=== PATIENT | male | born 1965 | race African-American/Black ===

== ENCOUNTER 2021-05-05 05:25 | Day surgery (SDC) | payer OTHER ==
[2021-04-15 13:48] VITALS: BMI 28.2
[2021-05-05] MEDS ORDERED: MIDAZOLAM HCL 2 MG/2 ML SINGLE DOSE VIAL ONE (11:23)
[2021-05-05] MEDS ORDERED: MIDAZOLAM HCL 5 MG/5 ML - 5 ML VIAL IVPUSH ONE ×2 (11:45→12:17)
[2021-05-05 14:07] VITALS: TEMP 97.6
[2021-05-05 14:49] VITALS: BP 140/70; PULSE 78
== END 2021-05-05 14:35 | disposition home or self-care (01) ==
LOC: JRADIR 05:25
PROVIDERS: ATTEND Internal Medicine Hematology & Oncology
PROC: 0JH63WZ Insertion of Totally Implantable Vascular Access Device into Chest Subcutaneous Tissue and Fascia, Percutaneous Approach (ICD-10-PCS; principal; 2021-05-05)
DX: C09.9 Malignant neoplasm of tonsil, unspecified (principal)
CPT/HCPCS: 36561; C1788; 77001-TC-FY; 82962

== ENCOUNTER 2021-05-06 07:09 | Day surgery (SDC) | payer OTHER ==
[2021-05-06] MEDS ORDERED: SODIUM CHLORIDE 1,000 ML IV ONE (09:30)
[2021-05-06] MEDS ORDERED: PALONOSETRON HCL 0.25 MG/5 ML VIAL IVPUSH ONE (10:30)
[2021-05-06] MEDS ORDERED: FOSAPREPITANT DIMEGLUMINE 150 MG in SODIUM CHLORIDE 145 ML IVPB ONE (10:30)
[2021-05-06] MEDS ORDERED: DEXAMETHASONE SODIUM PHOSPHATE 10 MG in SODIUM CHLORIDE 50 ML IVPB ONE (10:30)
[2021-05-06] MEDS ORDERED: SODIUM CHLORIDE IV ONE (11:00)
[2021-05-06] MEDS ORDERED: CISPLATIN IV ONE (11:00)
[2021-05-06 11:20] LABS: BASO % 0.6 % (0-2.0); EOS % 2.4 % (0-4.5); HEMATOCRIT 44.7 % (35.4-49); LYMPH % 18.4 % (8-40); MCH 29.8 pg (25.7-33.7); MCHC 33.7 g/dl (32.0-35.9); MEAN CELL VOLUME 88.4 fl (80-96); MONO % 9.6 % (3.8-10.2); PLATELET COUNT 223 10^3/uL (134-434); RBC 5.05 M/mm3 (4.00-5.60); RDW 13.6 % (11.9-15.9); WHITE BLOOD COUNT 4.3 K/mm3 (4.0-10.0)
[2021-05-06 11:46] LABS: ALBUMIN 3.2 g/dl (3.4-5.0); BLOOD UREA NITROGEN 10.8 mg/dL (7-18); CALCIUM 9.1 mg/dL (8.5-10.1)
[2021-05-06 11:49] LABS: CREATININE 1.1 mg/dL (0.55-1.3)
[2021-05-06 11:51] LABS: BILIRUBIN,TOTAL 0.5 mg/dL (0.2-1); TOT PROT 7.3 g/dl (6.4-8.2)
[2021-05-06] MEDS ORDERED: POTASSIUM CHLORIDE 10 MEQ, MAGNESIUM SULFATE 1 GM in SODIUM CHLORIDE 1,000 ML IV ONE (12:00)
[2021-05-06 18:08] VITALS: TEMP 98.4
[2021-05-06 18:15] VITALS: BP 139/72; PULSE 81
== END 2021-05-06 16:50 | disposition home or self-care (01) ==
LOC: JONCCHEMO 07:09
PROVIDERS: ATTEND Internal Medicine Hematology & Oncology
DX: Z51.11 Encounter for antineoplastic chemotherapy (principal); C09.9 Malignant neoplasm of tonsil, unspecified
CPT/HCPCS: 36415; 80053; 83735; 85025; 96361; 96367; 96375; 96413; J1453; J2469

== ENCOUNTER 2021-05-07 08:49 | Day surgery (SDC) | payer OTHER ==
[2021-05-07] MEDS ORDERED: SODIUM CHLORIDE 500 ML IV STA (11:02)
[2021-05-07 15:52] VITALS: BP 134/71; PULSE 89; TEMP 97.7
[2021-05-07] MEDS ORDERED: PORTA CATH FLUSH 10 ML IVPUSH ONE (15:52)
== END 2021-05-07 13:30 | disposition home or self-care (01) ==
LOC: JONCNONCHE 08:49
PROVIDERS: ATTEND Internal Medicine Hematology & Oncology
PROC: 3E0437Z Introduction of Electrolytic and Water Balance Substance into Central Vein, Percutaneous Approach (ICD-10-PCS; principal; 2021-05-07)
DX: C09.9 Malignant neoplasm of tonsil, unspecified (principal); Z76.89 Persons encountering health services in other specified circumstances
CPT/HCPCS: 96360; 96361

== ENCOUNTER 2021-05-13 06:59 | Day surgery (SDC) | payer OTHER ==
[2021-05-13] MEDS ORDERED: SODIUM CHLORIDE 1,000 ML IV ONE ×2 (09:00→11:30)
[2021-05-13] MEDS ORDERED: PALONOSETRON HCL 0.25 MG/5 ML VIAL IVPUSH ONE (10:00)
[2021-05-13] MEDS ORDERED: FOSAPREPITANT DIMEGLUMINE 150 MG in SODIUM CHLORIDE 145 ML IVPB ONE (10:00)
[2021-05-13] MEDS ORDERED: DEXAMETHASONE SODIUM PHOSPHATE 10 MG in SODIUM CHLORIDE 50 ML IVPB ONE (10:00)
[2021-05-13] MEDS ORDERED: CISPLATIN IV ONE (10:30)
[2021-05-13] MEDS ORDERED: SODIUM CHLORIDE IV ONE (10:30)
[2021-05-13 10:50] LABS: HEMATOCRIT 42.6 % (35.4-49); HEMOGLOBIN 14.3 GM/dL (11.7-16.9); MCH 29.2 pg (25.7-33.7); MCHC 33.7 g/dl (32.0-35.9); MEAN CELL VOLUME 86.6 fl (80-96); MEAN PLT VOLUME 7.6 fl (7.5-11.1); PLATELET COUNT 223 10^3/uL (134-434); RBC 4.92 M/mm3 (4.00-5.60); RDW 13.2 % (11.9-15.9); WHITE BLOOD COUNT 3.6 K/mm3 (4.0-10.0)
[2021-05-13 11:19] LABS: ALBUMIN 3.3 g/dl (3.4-5.0); BLOOD UREA NITROGEN 11.5 mg/dL (7-18); MAGNESIUM 2.2 mg/dL (1.8-2.4)
[2021-05-13 11:22] LABS: CREATININE 1.1 mg/dL (0.55-1.3)
[2021-05-13 11:24] LABS: ANISOCYTOSIS 1+; BILIRUBIN,TOTAL 0.4 mg/dL (0.2-1); MACROCYTOSIS 0; PLATELET ESTIMATE NORMAL; TOT PROT 7.1 g/dl (6.4-8.2)
[2021-05-13] MEDS ORDERED: KCL 10 MEQ IVPB 10 MEQ/100 ML INFUS.BAG IVPB ONE (11:30)
[2021-05-13] MEDS ORDERED: MAGNESIUM 1GM/D5W - 1 GM/100 ML IVPB IVPB ONE (11:30)
[2021-05-13 17:14] VITALS: PULSE 78; TEMP 98.5
[2021-05-13] MEDS ORDERED: PORTA CATH FLUSH 10 ML IVPUSH ONE ×2 (17:14→18:09)
[2021-05-13 18:09] VITALS: BP 148/70
== END 2021-05-13 17:55 | disposition home or self-care (01) ==
LOC: JONCCHEMO 06:59
PROVIDERS: ATTEND Internal Medicine Hematology & Oncology
PROC: 3E04305 Introduction of Other Antineoplastic into Central Vein, Percutaneous Approach (ICD-10-PCS; principal; 2021-05-13)
PROC: 3E043GC Introduction of Other Therapeutic Substance into Central Vein, Percutaneous Approach (ICD-10-PCS; 2021-05-13)
PROC: 3E0437Z Introduction of Electrolytic and Water Balance Substance into Central Vein, Percutaneous Approach (ICD-10-PCS; 2021-05-13)
DX: Z51.11 Encounter for antineoplastic chemotherapy (principal); C09.9 Malignant neoplasm of tonsil, unspecified; I10 Essential (primary) hypertension; E11.9 Type 2 diabetes mellitus without complications; Z86.73 Personal history of transient ischemic attack (TIA), and cerebral infarction without residual deficits
CPT/HCPCS: 36415; 80053; 83735; 85025; 96361; 96367; 96375; 96413; J1453; J2469

== ENCOUNTER 2021-05-14 08:32 | Day surgery (SDC) | payer OTHER ==
[2021-05-14] MEDS ORDERED: SODIUM CHLORIDE 500 ML IV ONE (11:00)
[2021-05-14 16:02] VITALS: TEMP 98.4
[2021-05-14] MEDS ORDERED: PORTA CATH FLUSH 10 ML IVPUSH ONE (16:02)
[2021-05-14 16:03] VITALS: BP 140/79; PULSE 78
== END 2021-05-14 13:30 | disposition home or self-care (01) ==
LOC: JONCNONCHE 08:32
PROVIDERS: ATTEND Internal Medicine Hematology & Oncology
PROC: 3E0437Z Introduction of Electrolytic and Water Balance Substance into Central Vein, Percutaneous Approach (ICD-10-PCS; principal; 2021-05-14)
DX: Z76.89 Persons encountering health services in other specified circumstances (principal); C09.9 Malignant neoplasm of tonsil, unspecified; I10 Essential (primary) hypertension; E11.9 Type 2 diabetes mellitus without complications; Z86.73 Personal history of transient ischemic attack (TIA), and cerebral infarction without residual deficits
CPT/HCPCS: 96360; 96361

== ENCOUNTER 2021-05-20 07:22 | Day surgery (SDC) | payer OTHER ==
[2021-05-20] MEDS ORDERED: SODIUM CHLORIDE 1,000 ML IV ONE ×2 (10:00→12:30)
[2021-05-20] MEDS ORDERED: PALONOSETRON HCL 0.25 MG/5 ML VIAL IVPUSH ONE (11:00)
[2021-05-20] MEDS ORDERED: DEXAMETHASONE SODIUM PHOSPHATE 10 MG in SODIUM CHLORIDE 50 ML IVPB ONE (11:00)
[2021-05-20] MEDS ORDERED: FOSAPREPITANT DIMEGLUMINE 150 MG in SODIUM CHLORIDE 145 ML IVPB ONE (11:00)
[2021-05-20] MEDS ORDERED: SODIUM CHLORIDE IV ONE (11:30)
[2021-05-20] MEDS ORDERED: CISPLATIN IV ONE (11:30)
[2021-05-20 11:43] LABS: BASO % 0.5 % (0-2.0); EOS % 3.1 % (0-4.5); HEMATOCRIT 40.9 % (35.4-49); HEMOGLOBIN 13.9 GM/dL (11.7-16.9); LYMPH % 8.3 % (8-40); MCH 29.8 pg (25.7-33.7); MEAN CELL VOLUME 87.6 fl (80-96); MEAN PLT VOLUME 7.3 fl (7.5-11.1); MONO % 18.9 % (3.8-10.2); NEUT % 69.2 % (42.8-82.8); PLATELET COUNT 187 10^3/uL (134-434); RBC 4.67 M/mm3 (4.00-5.60); RDW 13.6 % (11.9-15.9); WHITE BLOOD COUNT 3.2 K/mm3 (4.0-10.0)
[2021-05-20 12:02] LABS: ALBUMIN 3.2 g/dl (3.4-5.0); BLOOD UREA NITROGEN 10.2 mg/dL (7-18); CALCIUM 8.5 mg/dL (8.5-10.1)
[2021-05-20 12:07] LABS: BILIRUBIN,TOTAL 0.5 mg/dL (0.2-1); TOT PROT 6.9 g/dl (6.4-8.2)
[2021-05-20] MEDS ORDERED: KCL 10 MEQ IVPB 10 MEQ/100 ML INFUS.BAG IVPB ONE (12:30)
[2021-05-20] MEDS ORDERED: MAGNESIUM 1GM/D5W - 1 GM/100 ML IVPB IVPB ONE (12:30)
[2021-05-20 13:11] LABS: MAGNESIUM 2.1 mg/dL (1.8-2.4)
[2021-05-20 18:34] VITALS: BP 122/69; PULSE 73; TEMP 98.5
[2021-05-20] MEDS ORDERED: PORTA CATH FLUSH 10 ML IVPUSH ONE (18:34)
== END 2021-05-20 18:37 | disposition home or self-care (01) ==
LOC: JONCCHEMO 07:22
PROVIDERS: ATTEND Internal Medicine Hematology & Oncology
PROC: 3E04305 Introduction of Other Antineoplastic into Central Vein, Percutaneous Approach (ICD-10-PCS; principal; 2021-05-20)
PROC: 3E043GC Introduction of Other Therapeutic Substance into Central Vein, Percutaneous Approach (ICD-10-PCS; 2021-05-20)
PROC: 3E0437Z Introduction of Electrolytic and Water Balance Substance into Central Vein, Percutaneous Approach (ICD-10-PCS; 2021-05-20)
DX: Z51.11 Encounter for antineoplastic chemotherapy (principal); C09.9 Malignant neoplasm of tonsil, unspecified; I10 Essential (primary) hypertension; E11.9 Type 2 diabetes mellitus without complications; Z86.73 Personal history of transient ischemic attack (TIA), and cerebral infarction without residual deficits
CPT/HCPCS: 36415; 80053; 83735; 85025; 96361; 96367; 96413; J1453; J2469

== ENCOUNTER 2021-05-22 17:02 | Day surgery (SDC) | payer OTHER ==
[2021-05-22 10:57] LABS: CALCIUM 8.2 mg/dL (8.5-10.1)
[2021-05-22 10:58] LABS: BLOOD UREA NITROGEN 10.4 mg/dL (7-18); MAGNESIUM 1.9 mg/dL (1.8-2.4)
[~2021-05-22 17:02] MED LIST: MAGNESIUM 2GM/50ML STERILE WATER IVPB IVPB ONE; SODIUM CHLORIDE 500 ML IV STA
[2021-05-22 17:31] VITALS: BP 131/71; PULSE 66; TEMP 98.1
[2021-05-22] MEDS ORDERED: PORTA CATH FLUSH 10 ML IVPUSH ONE (17:31)
== END 2021-05-22 17:45 | disposition home or self-care (01) ==
LOC: J7W 17:02 → JONCNONCHE 17:02
PROVIDERS: ATTEND Internal Medicine Hematology & Oncology
PROC: 3E043GC Introduction of Other Therapeutic Substance into Central Vein, Percutaneous Approach (ICD-10-PCS; principal; 2021-05-22)
PROC: 3E0437Z Introduction of Electrolytic and Water Balance Substance into Central Vein, Percutaneous Approach (ICD-10-PCS; 2021-05-22)
DX: Z76.89 Persons encountering health services in other specified circumstances (principal); C09.9 Malignant neoplasm of tonsil, unspecified; I10 Essential (primary) hypertension; E11.9 Type 2 diabetes mellitus without complications; Z86.73 Personal history of transient ischemic attack (TIA), and cerebral infarction without residual deficits
CPT/HCPCS: 36415; 80048; 83735; 96361; 96365

== ENCOUNTER 2021-05-27 07:12 | Day surgery (SDC) | payer OTHER ==
[2021-05-27] MEDS ORDERED: DEXAMETHASONE SODIUM PHOSPHATE 10 MG in SODIUM CHLORIDE 50 ML IVPB ONE (11:00)
[2021-05-27] MEDS ORDERED: PALONOSETRON HCL 0.25 MG/5 ML VIAL IVPUSH ONE (11:00)
[2021-05-27] MEDS ORDERED: SODIUM CHLORIDE 1,000 ML IV ONE ×2 (11:00→12:00)
[2021-05-27] MEDS ORDERED: FOSAPREPITANT DIMEGLUMINE 150 MG in SODIUM CHLORIDE 145 ML IVPB ONE (11:00)
[2021-05-27] MEDS ORDERED: CISPLATIN IV ONE ×2 (11:30→12:45)
[2021-05-27] MEDS ORDERED: SODIUM CHLORIDE IV ONE ×2 (11:30→12:45)
[2021-05-27 11:43] LABS: BASO % 0.7 % (0-2.0); EOS % 2.2 % (0-4.5); HEMATOCRIT 43.1 % (35.4-49); LYMPH % 8.5 % (8-40); MCH 28.9 pg (25.7-33.7); MCHC 32.6 g/dl (32.0-35.9); MEAN CELL VOLUME 88.6 fl (80-96); MEAN PLT VOLUME 7.3 fl (7.5-11.1); MONO % 13.7 % (3.8-10.2); NEUT % 74.9 % (42.8-82.8); PLATELET COUNT 205 10^3/uL (134-434); RBC 4.86 M/mm3 (4.00-5.60); RDW 13.6 % (11.9-15.9); WHITE BLOOD COUNT 2.9 K/mm3 (4.0-10.0)
[2021-05-27 11:58] LABS: CALCIUM 8.9 mg/dL (8.5-10.1)
[2021-05-27 11:59] LABS: ALBUMIN 3.2 g/dl (3.4-5.0)
[2021-05-27 12:00] LABS: BLOOD UREA NITROGEN 10.2 mg/dL (7-18)
[2021-05-27] MEDS ORDERED: KCL 10 MEQ IVPB 10 MEQ/100 ML INFUS.BAG IVPB ONE (12:00)
[2021-05-27] MEDS ORDERED: MAGNESIUM 1GM/D5W - 1 GM/100 ML IVPB IVPB ONE (12:00)
[2021-05-27 12:03] LABS: TOT PROT 6.9 g/dl (6.4-8.2)
[2021-05-27 12:04] LABS: BILIRUBIN,TOTAL 0.6 mg/dL (0.2-1)
[2021-05-27 17:06] VITALS: TEMP 98
[2021-05-27] MEDS ORDERED: PORTA CATH FLUSH 10 ML IVPUSH ONE (17:06)
[2021-05-27 18:07] VITALS: BP 165/81; PULSE 87
== END 2021-05-27 18:21 | disposition home or self-care (01) ==
LOC: JONCCHEMO 07:12
PROVIDERS: ATTEND Internal Medicine Hematology & Oncology
DX: Z51.11 Encounter for antineoplastic chemotherapy (principal); C09.9 Malignant neoplasm of tonsil, unspecified; E11.9 Type 2 diabetes mellitus without complications
CPT/HCPCS: 36415; 80053; 83735; 85025; 87517; 96366; 96367; 96375; 96413; J1453; J2469

== ENCOUNTER 2021-05-29 10:41 | Day surgery (SDC) | payer OTHER ==
[~2021-05-29 10:41] MED LIST changes: -MAGNESIUM 2GM/50ML STERILE WATER IVPB IVPB ONE
[2021-05-29 11:51] LABS: BLOOD UREA NITROGEN 13.8 mg/dL (7-18); CALCIUM 8.5 mg/dL (8.5-10.1); MAGNESIUM 1.8 mg/dL (1.8-2.4)
[2021-05-29 11:54] LABS: CREATININE 1.1 mg/dL (0.55-1.3)
[2021-05-29] MEDS ORDERED: MAGNESIUM SULF 50% (8.12 MEQ/2 ML-1 GM VIAL) ONE ×2 (12:37→12:39)
[2021-05-29] MEDS ORDERED: SODIUM CHLORIDE 250 ML IV STA (12:39)
[2021-05-29] MEDS: MAGNESIUM 2GM/50ML STERILE WATER IVPB IVPB ONE ×2 (12:45→16:20)
[2021-05-29 16:19] VITALS: BP 131/74; PULSE 76; TEMP 97.9
[2021-05-29] MEDS ORDERED: PORTA CATH FLUSH 10 ML IVPUSH ONE (16:19)
== END 2021-05-29 14:00 | disposition home or self-care (01) ==
LOC: JONCNONCHE 10:41
PROVIDERS: ATTEND Internal Medicine Hematology & Oncology
PROC: 3E043GC Introduction of Other Therapeutic Substance into Central Vein, Percutaneous Approach (ICD-10-PCS; principal; 2021-05-29)
DX: C09.9 Malignant neoplasm of tonsil, unspecified (principal); Z76.89 Persons encountering health services in other specified circumstances
CPT/HCPCS: 36415; 80048; 83735; 96365; 96366

== ENCOUNTER → 2021-06-03 | Day surgery (SDC) | payer OTHER ==
[~2021-06-03] MED LIST changes: +CISPLATIN IV ONE; +DEXAMETHASONE SODIUM PHOSPHATE 10 MG in SODIUM CHLORIDE 50 ML IVPB ONE; +FOSAPREPITANT DIMEGLUMINE 150 MG in SODIUM CHLORIDE 145 ML IVPB ONE; +KCL 10 MEQ IVPB 10 MEQ/100 ML INFUS.BAG IVPB ONE; +MAGNESIUM 1GM/D5W - 1 GM/100 ML IVPB IVPB ONE; +PALONOSETRON HCL 0.25 MG/5 ML VIAL IVPUSH ONE; +PORTA CATH FLUSH 10 ML IVPUSH ONE; +SODIUM CHLORIDE 1,000 ML IV ONE; -SODIUM CHLORIDE 500 ML IV STA; +SODIUM CHLORIDE IV ONE
[2021-06-03 11:20] LABS: HEMATOCRIT 40.9 % (35.4-49); HEMOGLOBIN 13.2 GM/dL (11.7-16.9); MCH 28.7 pg (25.7-33.7); MCHC 32.2 g/dl (32.0-35.9); MEAN CELL VOLUME 89.2 fl (80-96); MEAN PLT VOLUME 7.4 fl (7.5-11.1); PLATELET COUNT 151 10^3/uL (134-434); RBC 4.59 M/mm3 (4.00-5.60); RDW 13.9 % (11.9-15.9); WHITE BLOOD COUNT 2.2 K/mm3 (4.0-10.0)
[2021-06-03 11:27] LABS: ALBUMIN 3.4 g/dl (3.4-5.0); CALCIUM 8.9 mg/dL (8.5-10.1); MAGNESIUM 1.9 mg/dL (1.8-2.4)
[2021-06-03 11:28] LABS: BLOOD UREA NITROGEN 9.3 mg/dL (7-18)
[2021-06-03 11:32] LABS: BILIRUBIN,TOTAL 0.5 mg/dL (0.2-1); TOT PROT 6.8 g/dl (6.4-8.2)
[2021-06-03 11:55] LABS: PLATELET ESTIMATE ADEQUATE
[2021-06-03 16:22] VITALS: TEMP 98.5
[2021-06-03 17:10] VITALS: BP 146/82; PULSE 80
== END | disposition home or self-care (01) ==
LOC: JONCCHEMO 07:29
PROVIDERS: ATTEND Internal Medicine Hematology & Oncology
PROC: 3E04305 Introduction of Other Antineoplastic into Central Vein, Percutaneous Approach (ICD-10-PCS; principal; 2021-06-03)
PROC: 3E043GC Introduction of Other Therapeutic Substance into Central Vein, Percutaneous Approach (ICD-10-PCS; 2021-06-03)
PROC: 3E0437Z Introduction of Electrolytic and Water Balance Substance into Central Vein, Percutaneous Approach (ICD-10-PCS; 2021-06-03)
DX: Z51.11 Encounter for antineoplastic chemotherapy (principal); C09.9 Malignant neoplasm of tonsil, unspecified; I10 Essential (primary) hypertension; I25.10 Atherosclerotic heart disease of native coronary artery without angina pectoris; E11.9 Type 2 diabetes mellitus without complications
CPT/HCPCS: 36415; 80053; 82962; 83735; 85025; 96361; 96367; 96375; 96413; J1453; J2469

== ENCOUNTER 2021-06-05 08:09 | Day surgery (SDC) | payer OTHER ==
[2021-06-05] MEDS ORDERED: SODIUM CHLORIDE 500 ML IV ONE (10:30)
[2021-06-05] MEDS ORDERED: MAGNESIUM 1GM/D5W 100ML - 100 ML IVPB IVPB ONE (11:47)
[2021-06-05 16:38] VITALS: BP 129/84; PULSE 79; TEMP 98.2
== END 2021-06-05 13:30 | disposition home or self-care (01) ==
LOC: JONCNONCHE 08:09
PROVIDERS: ATTEND Internal Medicine Hematology & Oncology
PROC: 3E033GC Introduction of Other Therapeutic Substance into Peripheral Vein, Percutaneous Approach (ICD-10-PCS; principal; 2021-06-05)
PROC: 3E0337Z Introduction of Electrolytic and Water Balance Substance into Peripheral Vein, Percutaneous Approach (ICD-10-PCS; 2021-06-05)
DX: Z76.89 Persons encountering health services in other specified circumstances (principal); C09.9 Malignant neoplasm of tonsil, unspecified
CPT/HCPCS: 96361; 96374

== ENCOUNTER 2021-06-12 14:56 | Inpatient (IN) | payer OTHER ==
[2021-06-12] MEDS ORDERED: SODIUM CHLORIDE 2,694 ML IV ONE (15:12)
[2021-06-12] MEDS ORDERED: PIPERACILLIN/TAZOB 4.5 GM 4.5 GM in DEXTROSE 5%-WATER 100 ML IVPB ONE (15:31)
[2021-06-12] MEDS ORDERED: VANCOMYCIN 1 GM in D5W (PRE-DOCKED) 1,000 MG/250 ML IVPB ONE (15:31)
[2021-06-12] MEDS ORDERED: PIPERACILLIN/TAZOB 4.5 GM 4.5 GM/100 ML BAG IVPB ONE (15:59)
[2021-06-12] MEDS ORDERED: VANCOMYCIN 1 GRAM (PRE-DOCKED) 1,000 MG/250 ML BAG IVPB ONE (15:59)
[2021-06-12] MEDS ORDERED: ACETAMINOPHEN 325 MG TABLET (FP) PO ONE (16:22)
[2021-06-12] MEDS ORDERED: ACETAMINOPHEN 325 MG TABLET (FP) ONE (17:06)
[2021-06-12] MEDS ORDERED: SODIUM CHLORIDE 0.45% 1,000 ML IV SCH (18:00)
[2021-06-12 18:49] LABS: URINE APPEARANCE CLEAR; URINE BILIRUBIN NEGATIVE (NEGATIVE); URINE COLOR YELLOW; URINE GLUCOSE (UA) NEGATIVE (NEGATIVE); URINE KETONE NEGATIVE (NEGATIVE); URINE LEUK ESTERASE NEGATIVE (NEGATIVE); URINE NITRITE NEGATIVE (NEGATIVE); URINE PROTEIN NEGATIVE (NEGATIVE); URINE UROBILINOGEN 0.2 mg/dL (0.2-1.0)
[2021-06-12] MEDS: VANCOMYCIN 1 GRAM (PRE-DOCKED) 1,000 MG/250 ML BAG IVPB SCH (21:16)
[2021-06-12] MEDS: INSULIN SLIDING SCALE (NOVOLOG) 1 VIAL SQ SCH (21:22)
[2021-06-12] MEDS: SOTROVIMAB 500 MG in SODIUM CHLORIDE 100 ML IVPB ONE ×2 (22:00→23:15)
[2021-06-13] MEDS ORDERED: DEXTROSE 5%-WATER 100 ML IVPB ONE ×4 (01:57→18:57)
[2021-06-13] MEDS ORDERED: PIPERACILLIN/TAZOBACTAM 4.5 GM VIAL IVPB ONE ×4 (01:57→18:57)
[2021-06-13] MEDS: PIPERACILLIN/TAZOB 4.5 GM 4.5 GM in DEXTROSE 5%-WATER 100 ML IVPB SCH ×3 (02:02→19:00)
[2021-06-13] MEDS: INSULIN SLIDING SCALE (NOVOLOG) 1 VIAL SQ SCH ×4 (06:40→21:45)
[2021-06-13] MEDS: VANCOMYCIN 1 GRAM (PRE-DOCKED) 1,000 MG/250 ML BAG IVPB SCH ×2 (11:50→21:35)
[2021-06-13] MEDS: LISINOPRIL 20 MG TABLET PO SCH ×2 (11:50→12:09)
[2021-06-13] MEDS: amLODIPine BESYLATE 10 MG TABLET (FP) PO SCH ×2 (11:50→12:09)
[2021-06-13] MEDS: MAG HYDROX/ALH/SMC/DPHA/LIDO 240 ML MOUTHWASH MM SCH ×3 (11:53→17:05)
[2021-06-13] MEDS: ACETAMINOPHEN 325 MG TABLET (FP) PO PRN (13:21)
[2021-06-13 18:15] LABS: BASO % 0.2 % (0-2.0); HEMATOCRIT 35.8 % (35.4-49); HEMOGLOBIN 11.9 GM/dL (11.7-16.9); MCHC 33.3 g/dl (32.0-35.9); MEAN CELL VOLUME 87.3 fl (80-96); MEAN PLT VOLUME 7.5 fl (7.5-11.1); MONO % 4.5 % (3.8-10.2); NEUT % 93.3 % (42.8-82.8); PLATELET COUNT 57 10^3/uL (134-434); RBC 4.11 M/mm3 (4.00-5.60); RDW 14.8 % (11.9-15.9); WHITE BLOOD COUNT 3.6 K/mm3 (4.0-10.0)
[2021-06-13] MEDS: LACTATED RINGERS SOLUTION 1,000 ML/1,000 ML INFUS.BAG IV SCH (18:56)
[2021-06-13 19:00] LABS: CALCIUM 7.9 mg/dL (8.5-10.1)
[2021-06-13 19:01] LABS: ALBUMIN 2.7 g/dl (3.4-5.0); BLOOD UREA NITROGEN 11.6 mg/dL (7-18)
[2021-06-13 19:04] LABS: CREATININE 1.1 mg/dL (0.55-1.3)
[2021-06-13 19:05] LABS: TOT PROT 5.9 g/dl (6.4-8.2)
[2021-06-13 19:06] LABS: BILIRUBIN,TOTAL 0.3 mg/dL (0.2-1)
[2021-06-13 19:32] VITALS: BMI 26.9
[2021-06-13 20:28] LABS: ANISOCYTOSIS 1+; MACROCYTOSIS 0; PLATELET ESTIMATE DECREASED; TOXIC GRANULATION 1+
[2021-06-14] MEDS: MAG HYDROX/ALH/SMC/DPHA/LIDO 240 ML MOUTHWASH MM SCH ×5 (00:07→23:31)
[2021-06-14] MEDS ORDERED: PIPERACILLIN/TAZOBACTAM 4.5 GM VIAL IVPB ONE ×3 (00:50→17:10)
[2021-06-14] MEDS ORDERED: DEXTROSE 5%-WATER 100 ML IVPB ONE ×3 (00:50→17:11)
[2021-06-14] MEDS: PIPERACILLIN/TAZOB 4.5 GM 4.5 GM in DEXTROSE 5%-WATER 100 ML IVPB SCH ×3 (01:17→18:06)
[2021-06-14] MEDS: ACETAMINOPHEN 325 MG TABLET (FP) PO PRN ×2 (01:24→14:16)
[2021-06-14] MEDS: LACTATED RINGERS SOLUTION 1,000 ML/1,000 ML INFUS.BAG IV SCH ×2 (04:57→23:31)
[2021-06-14] MEDS: INSULIN SLIDING SCALE (NOVOLOG) 1 VIAL SQ SCH ×4 (06:09→21:15)
[2021-06-14 08:19] LABS: EOS % 0.2 % (0-4.5); HEMATOCRIT 36.9 % (35.4-49); HEMOGLOBIN 12.1 GM/dL (11.7-16.9); LYMPH % 2.2 % (8-40); MCH 28.5 pg (25.7-33.7); MCHC 32.8 g/dl (32.0-35.9); MEAN CELL VOLUME 87.1 fl (80-96); MEAN PLT VOLUME 7.4 fl (7.5-11.1); MONO % 4.1 % (3.8-10.2); NEUT % 93.5 % (42.8-82.8); PLATELET COUNT 55 10^3/uL (134-434); RBC 4.24 M/mm3 (4.00-5.60); RDW 14.2 % (11.9-15.9); WHITE BLOOD COUNT 3.3 K/mm3 (4.0-10.0)
[2021-06-14 08:45] LABS: CALCIUM 7.8 mg/dL (8.5-10.1)
[2021-06-14 08:46] LABS: ALBUMIN 2.6 g/dl (3.4-5.0); BLOOD UREA NITROGEN 8.8 mg/dL (7-18)
[2021-06-14 08:50] LABS: BILIRUBIN,TOTAL 0.3 mg/dL (0.2-1); TOT PROT 5.8 g/dl (6.4-8.2)
[2021-06-14 10:05] LABS: ANISOCYTOSIS 0; HELMET CELLS 0; HOWELL-JOLLY BODIES 0; MACROCYTOSIS 0; OVALOCYTE 0; PLATELET ESTIMATE DECREASED; ROULEAU 0; SICKELED CELLS 0; TARGET CELLS 0; TEAR DROP CELLS 0; TOXIC GRANULATION 0
[2021-06-14] MEDS: amLODIPine BESYLATE 10 MG TABLET (FP) PO SCH (10:33)
[2021-06-14] MEDS: LISINOPRIL 20 MG TABLET PO SCH (10:34)
[2021-06-14] MEDS: VANCOMYCIN 1 GRAM (PRE-DOCKED) 1,000 MG/250 ML BAG IVPB SCH ×2 (11:20→21:15)
[2021-06-14] MEDS ORDERED: POLYETHYLENE GLYCOL (HEALTHYLAX) 3350 17 GM PACKET PO PRN (12:08)
[2021-06-14 22:55] LABS: URINE APPEARANCE CLEAR; URINE BILIRUBIN NEGATIVE (NEGATIVE); URINE COLOR YELLOW; URINE GLUCOSE (UA) NEGATIVE (NEGATIVE); URINE KETONE NEGATIVE (NEGATIVE); URINE LEUK ESTERASE NEGATIVE (NEGATIVE); URINE NITRITE NEGATIVE (NEGATIVE); URINE PROTEIN NEGATIVE (NEGATIVE)
[2021-06-15] MEDS ORDERED: PIPERACILLIN/TAZOBACTAM 4.5 GM VIAL IVPB ONE ×3 (00:31→16:48)
[2021-06-15] MEDS ORDERED: DEXTROSE 5%-WATER 100 ML IVPB ONE ×3 (00:31→16:48)
[2021-06-15] MEDS: PIPERACILLIN/TAZOB 4.5 GM 4.5 GM in DEXTROSE 5%-WATER 100 ML IVPB SCH ×3 (01:24→17:27)
[2021-06-15] MEDS: MAG HYDROX/ALH/SMC/DPHA/LIDO 240 ML MOUTHWASH MM SCH ×4 (05:01→23:41)
[2021-06-15] MEDS: INSULIN SLIDING SCALE (NOVOLOG) 1 VIAL SQ SCH ×4 (06:15→21:45)
[2021-06-15 08:44] LABS: BASO % 0.2 % (0-2.0); EOS % 0.3 % (0-4.5); HEMATOCRIT 38.4 % (35.4-49); HEMOGLOBIN 12.5 GM/dL (11.7-16.9); MCH 28.4 pg (25.7-33.7); MCHC 32.4 g/dl (32.0-35.9); MEAN CELL VOLUME 87.4 fl (80-96); MEAN PLT VOLUME 7.8 fl (7.5-11.1); MONO % 6.6 % (3.8-10.2); NEUT % 89.9 % (42.8-82.8); PLATELET COUNT 65 10^3/uL (134-434); RBC 4.39 M/mm3 (4.00-5.60); RDW 14.7 % (11.9-15.9); WHITE BLOOD COUNT 2.3 K/mm3 (4.0-10.0)
[2021-06-15 09:20] LABS: CALCIUM 8.2 mg/dL (8.5-10.1)
[2021-06-15 09:21] LABS: ALBUMIN 2.7 g/dl (3.4-5.0); BLOOD UREA NITROGEN 7.5 mg/dL (7-18)
[2021-06-15 09:24] LABS: CREATININE 0.9 mg/dL (0.55-1.3)
[2021-06-15 09:26] LABS: BILIRUBIN,TOTAL 0.4 mg/dL (0.2-1)
[2021-06-15] MEDS ORDERED: BISACODYL 10 MG SUPP.RECT PR ONE (10:00)
[2021-06-15] MEDS: SENNOSIDES 8.6MG TABLET (FP) PO SCH ×2 (10:06→21:30)
[2021-06-15] MEDS: amLODIPine BESYLATE 10 MG TABLET (FP) PO SCH (10:06)
[2021-06-15] MEDS: LISINOPRIL 20 MG TABLET PO SCH (10:06)
[2021-06-15] MEDS: POLYETHYLENE GLYCOL (HEALTHYLAX) 3350 17 GM PACKET PO SCH (10:06)
[2021-06-15] MEDS: LACTATED RINGERS SOLUTION 1,000 ML/1,000 ML INFUS.BAG IV SCH ×3 (10:09→21:44)
[2021-06-15] MEDS: VANCOMYCIN 1 GRAM (PRE-DOCKED) 1,000 MG/250 ML BAG IVPB SCH (11:24)
[2021-06-15] MEDS: HEPARIN NA (PORCINE) 5,000 UNITS/ML 1ML VIAL SQ SCH (21:30)
[2021-06-16] MEDS ORDERED: PIPERACILLIN/TAZOBACTAM 4.5 GM VIAL IVPB ONE ×3 (00:54→15:28)
[2021-06-16] MEDS ORDERED: DEXTROSE 5%-WATER 100 ML IVPB ONE ×3 (00:54→15:28)
[2021-06-16] MEDS: PIPERACILLIN/TAZOB 4.5 GM 4.5 GM in DEXTROSE 5%-WATER 100 ML IVPB SCH ×3 (02:25→17:12)
[2021-06-16] MEDS: MAG HYDROX/ALH/SMC/DPHA/LIDO 240 ML MOUTHWASH MM SCH ×3 (06:01→17:12)
[2021-06-16] MEDS: HEPARIN NA (PORCINE) 5,000 UNITS/ML 1ML VIAL SQ SCH ×4 (06:03→22:02)
[2021-06-16] MEDS: INSULIN SLIDING SCALE (NOVOLOG) 1 VIAL SQ SCH ×4 (06:31→23:05)
[2021-06-16 08:54] LABS: HEMATOCRIT 35.3 % (35.4-49); HEMOGLOBIN 11.6 GM/dL (11.7-16.9); MCH 28.5 pg (25.7-33.7); MCHC 32.9 g/dl (32.0-35.9); MEAN CELL VOLUME 86.6 fl (80-96); MEAN PLT VOLUME 7.7 fl (7.5-11.1); PLATELET COUNT 76 10^3/uL (134-434); RBC 4.07 M/mm3 (4.00-5.60); RDW 14.2 % (11.9-15.9)
[2021-06-16 09:04] LABS: WHITE BLOOD COUNT 0.9 K/mm3 (4.0-10.0)
[2021-06-16 09:53] LABS: BLOOD UREA NITROGEN 5.2 mg/dL (7-18)
[2021-06-16 09:54] LABS: ALBUMIN 2.7 g/dl (3.4-5.0); MAGNESIUM 1.7 mg/dL (1.8-2.4)
[2021-06-16 09:57] LABS: PHOSPHOROUS 2.7 mg/dL (2.5-4.9); TOT PROT 5.8 g/dl (6.4-8.2)
[2021-06-16 09:58] LABS: BILIRUBIN,TOTAL 0.4 mg/dL (0.2-1)
[2021-06-16 10:00] LABS: CREATININE 0.8 mg/dL (0.55-1.3)
[2021-06-16 10:07] LABS: ANISOCYTOSIS 0; HELMET CELLS 0; HOWELL-JOLLY BODIES 0; MACROCYTOSIS 0; OVALOCYTE 0; PLATELET ESTIMATE DECREASED; ROULEAU 0; SICKELED CELLS 0; TARGET CELLS 0; TEAR DROP CELLS 0; TOXIC GRANULATION 0
[2021-06-16] MEDS: SENNOSIDES 8.6MG TABLET (FP) PO SCH ×2 (10:32→22:02)
[2021-06-16] MEDS: amLODIPine BESYLATE 10 MG TABLET (FP) PO SCH (10:32)
[2021-06-16] MEDS: POLYETHYLENE GLYCOL (HEALTHYLAX) 3350 17 GM PACKET PO SCH (10:32)
[2021-06-16] MEDS: LISINOPRIL 20 MG TABLET PO SCH (10:32)
[2021-06-16] MEDS ORDERED: MAGNESIUM OXIDE 400 MG TABLET (FP) PO ONE (14:52)
[2021-06-16] MEDS: FOLIC ACID 1 MG TABLET (FP) PO SCH (17:12)
[2021-06-16] MEDS: MINERAL OIL/PET HY-PHL TOPICAL OINTMENT 454 GM JAR TP SCH (22:03)
[2021-06-16] MEDS ORDERED: TBO-FILGRASTIM 480 MCG/0.8 ML DISP.SYRIN SQ ONE (22:46)
[2021-06-17] MEDS: MAG HYDROX/ALH/SMC/DPHA/LIDO 240 ML MOUTHWASH MM SCH ×3 (00:29→12:20)
[2021-06-17] MEDS ORDERED: PIPERACILLIN/TAZOBACTAM 4.5 GM VIAL IVPB ONE ×3 (01:43→16:24)
[2021-06-17] MEDS ORDERED: DEXTROSE 5%-WATER 100 ML IVPB ONE ×3 (01:43→16:24)
[2021-06-17] MEDS: PIPERACILLIN/TAZOB 4.5 GM 4.5 GM in DEXTROSE 5%-WATER 100 ML IVPB SCH ×2 (03:08→12:07)
[2021-06-17] MEDS: HEPARIN NA (PORCINE) 5,000 UNITS/ML 1ML VIAL SQ SCH (06:22)
[2021-06-17] MEDS: INSULIN SLIDING SCALE (NOVOLOG) 1 VIAL SQ SCH ×2 (06:34→12:19)
[2021-06-17 09:08] LABS: BASO % 0.3 % (0-2.0); EOS % 0.4 % (0-4.5); HEMATOCRIT 38.3 % (35.4-49); HEMOGLOBIN 12.4 GM/dL (11.7-16.9); LYMPH % 3.8 % (8-40); MCH 28.4 pg (25.7-33.7); MCHC 32.4 g/dl (32.0-35.9); MEAN CELL VOLUME 87.6 fl (80-96); MEAN PLT VOLUME 7.5 fl (7.5-11.1); MONO % 12.4 % (3.8-10.2); NEUT % 83.1 % (42.8-82.8); PLATELET COUNT 100 10^3/uL (134-434); RBC 4.37 M/mm3 (4.00-5.60); RDW 14.4 % (11.9-15.9)
[2021-06-17 09:32] LABS: CALCIUM 8.1 mg/dL (8.5-10.1)
[2021-06-17 09:33] LABS: ALBUMIN 2.8 g/dl (3.4-5.0); BLOOD UREA NITROGEN 5.4 mg/dL (7-18); MAGNESIUM 1.9 mg/dL (1.8-2.4)
[2021-06-17 09:35] LABS: CREATININE 0.9 mg/dL (0.55-1.3)
[2021-06-17 09:36] LABS: PHOSPHOROUS 2.6 mg/dL (2.5-4.9)
[2021-06-17 09:37] LABS: BILIRUBIN,TOTAL 0.6 mg/dL (0.2-1); TOT PROT 6.3 g/dl (6.4-8.2)
[2021-06-17] MEDS: MINERAL OIL/PET HY-PHL TOPICAL OINTMENT 454 GM JAR TP SCH (12:08)
[2021-06-17] MEDS: FOLIC ACID 1 MG TABLET (FP) PO SCH (12:08)
[2021-06-17] MEDS: SENNOSIDES 8.6MG TABLET (FP) PO SCH (12:08)
[2021-06-17] MEDS: LISINOPRIL 20 MG TABLET PO SCH (12:08)
[2021-06-17] MEDS: POLYETHYLENE GLYCOL (HEALTHYLAX) 3350 17 GM PACKET PO SCH (12:09)
[2021-06-17] MEDS: amLODIPine BESYLATE 10 MG TABLET (FP) PO SCH (12:09)
[2021-06-17 14:52] VITALS: BP 119/82; PULSE 85; TEMP 98.4
== END 2021-06-17 17:30 | disposition home or self-care (01) | DRG 178 ==
LOC: JER 14:56 → JERBED 15:57 → J7W 20:34
PROVIDERS: ADMIT Family Medicine; ATTEND Internal Medicine
PROC: XW033H6 Introduction of Other New Technology Monoclonal Antibody into Peripheral Vein, Percutaneous Approach, New Technology Group 6 (ICD-10-PCS; principal; 2021-06-12)
DX: U07.1 COVID-19 (principal); E87.1 Hypo-osmolality and hyponatremia; R65.10 Systemic inflammatory response syndrome (SIRS) of non-infectious origin without acute organ dysfunction; I69.392 Facial weakness following cerebral infarction; I10 Essential (primary) hypertension; E11.9 Type 2 diabetes mellitus without complications; D70.9 Neutropenia, unspecified; C09.9 Malignant neoplasm of tonsil, unspecified; E86.0 Dehydration; R50.81 Fever presenting with conditions classified elsewhere; E86.9 Volume depletion, unspecified; K12.30 Oral mucositis (ulcerative), unspecified
CPT/HCPCS: 36415; 71045-TC-FY; 80048; 80053; 81003; 82728; 82962; 83036; 83615; 83735; 84100; 84439; 84443; 85025; 85651; 86140; 87040; 87086; 93005; 93010; 99285-25; C9803; G0480; J0131; J1447; J1644; M0247; Q0247; U0003; U0005

== ENCOUNTER 2021-07-01 08:56 | Day surgery (SDC) | payer OTHER ==
[2021-07-01] MEDS ORDERED: SODIUM CHLORIDE 1,000 ML IV ONE ×2 (10:00→12:00)
[2021-07-01 10:05] LABS: HEMOGLOBIN 11.8 GM/dL (11.7-16.9); MCH 28.7 pg (25.7-33.7); MCHC 32.8 g/dl (32.0-35.9); MEAN CELL VOLUME 87.4 fl (80-96); MEAN PLT VOLUME 7.5 fl (7.5-11.1); PLATELET COUNT 349 10^3/uL (134-434); RBC 4.12 M/mm3 (4.00-5.60); RDW 15.3 % (11.9-15.9); WHITE BLOOD COUNT 2.3 K/mm3 (4.0-10.0)
[2021-07-01] MEDS ORDERED: PALONOSETRON HCL 0.25 MG/5 ML VIAL IVPUSH ONE (10:30)
[2021-07-01] MEDS ORDERED: FOSAPREPITANT DIMEGLUMINE 150 MG in SODIUM CHLORIDE 145 ML IVPB ONE (10:30)
[2021-07-01] MEDS ORDERED: DEXAMETHASONE SODIUM PHOSPHATE 10 MG in SODIUM CHLORIDE 50 ML IVPB ONE (10:30)
[2021-07-01 10:31] LABS: CALCIUM 9.1 mg/dL (8.5-10.1)
[2021-07-01 10:34] LABS: CREATININE 1.1 mg/dL (0.55-1.3)
[2021-07-01 10:36] LABS: BILIRUBIN,TOTAL 0.5 mg/dL (0.2-1); TOT PROT 6.6 g/dl (6.4-8.2)
[2021-07-01 10:37] LABS: PLATELET ESTIMATE NORMAL
[2021-07-01] MEDS ORDERED: SODIUM CHLORIDE IV ONE (11:00)
[2021-07-01] MEDS ORDERED: CISPLATIN IV ONE (11:00)
[2021-07-01] MEDS ORDERED: KCL 10 MEQ IVPB 10 MEQ/100 ML INFUS.BAG IVPB ONE (12:00)
[2021-07-01] MEDS ORDERED: MAGNESIUM 1GM/D5W - 1 GM/100 ML IVPB IVPB ONE (13:00)
[2021-07-01 18:42] VITALS: BP 137/76; PULSE 93; TEMP 98.7
[2021-07-01] MEDS ORDERED: PORTA CATH FLUSH 10 ML IVPUSH ONE (18:42)
== END 2021-07-01 16:15 | disposition home or self-care (01) ==
LOC: JONCCHEMO 08:56
PROVIDERS: ATTEND Internal Medicine Hematology & Oncology
PROC: 3E04305 Introduction of Other Antineoplastic into Central Vein, Percutaneous Approach (ICD-10-PCS; principal; 2021-07-01)
PROC: 3E043GC Introduction of Other Therapeutic Substance into Central Vein, Percutaneous Approach (ICD-10-PCS; 2021-07-01)
PROC: 3E0437Z Introduction of Electrolytic and Water Balance Substance into Central Vein, Percutaneous Approach (ICD-10-PCS; 2021-07-01)
DX: Z51.11 Encounter for antineoplastic chemotherapy (principal); C09.9 Malignant neoplasm of tonsil, unspecified; I10 Essential (primary) hypertension; I25.10 Atherosclerotic heart disease of native coronary artery without angina pectoris; E11.9 Type 2 diabetes mellitus without complications; Z79.4 Long term (current) use of insulin
CPT/HCPCS: 36415; 80053; 83735; 85025; 96361; 96367; 96375; 96413; J1453; J2469

== ENCOUNTER 2021-07-03 12:45 | Day surgery (SDC) | payer OTHER ==
[2021-07-03 12:22] LABS: BLOOD UREA NITROGEN 17.5 mg/dL (7-18); CALCIUM 8.9 mg/dL (8.5-10.1)
[~2021-07-03 12:45] MED LIST changes: -CISPLATIN IV ONE; -DEXAMETHASONE SODIUM PHOSPHATE 10 MG in SODIUM CHLORIDE 50 ML IVPB ONE; -FOSAPREPITANT DIMEGLUMINE 150 MG in SODIUM CHLORIDE 145 ML IVPB ONE; -KCL 10 MEQ IVPB 10 MEQ/100 ML INFUS.BAG IVPB ONE; -MAGNESIUM 1GM/D5W - 1 GM/100 ML IVPB IVPB ONE; -PALONOSETRON HCL 0.25 MG/5 ML VIAL IVPUSH ONE; -PORTA CATH FLUSH 10 ML IVPUSH ONE; -SODIUM CHLORIDE 1,000 ML IV ONE; +SODIUM CHLORIDE 500 ML IV ONE; -SODIUM CHLORIDE IV ONE
[2021-07-03 18:23] VITALS: PULSE 85
[2021-07-03 18:26] VITALS: BP 121/68; TEMP 98.2
== END 2021-07-03 14:15 | disposition home or self-care (01) ==
LOC: JONCNONCHE 12:45
PROVIDERS: ATTEND Internal Medicine Hematology & Oncology
PROC: 3E0337Z Introduction of Electrolytic and Water Balance Substance into Peripheral Vein, Percutaneous Approach (ICD-10-PCS; principal; 2021-07-03)
DX: Z76.89 Persons encountering health services in other specified circumstances (principal); C09.9 Malignant neoplasm of tonsil, unspecified
CPT/HCPCS: 36415; 80048; 83735; 96360; 96361

== ENCOUNTER 2021-07-08 08:37 | Day surgery (SDC) | payer OTHER ==
[2021-07-08] MEDS ORDERED: SODIUM CHLORIDE 1,000 ML IV ONE ×2 (09:00→11:30)
[2021-07-08] MEDS ORDERED: PALONOSETRON HCL 0.25 MG/5 ML VIAL IVPUSH ONE (10:00)
[2021-07-08] MEDS ORDERED: DEXAMETHASONE SODIUM PHOSPHATE 10 MG in SODIUM CHLORIDE 50 ML IVPB ONE (10:00)
[2021-07-08] MEDS ORDERED: FOSAPREPITANT DIMEGLUMINE 150 MG in SODIUM CHLORIDE 145 ML IVPB ONE (10:00)
[2021-07-08 10:01] LABS: HEMATOCRIT 33.8 % (35.4-49); HEMOGLOBIN 11.4 GM/dL (11.7-16.9); MCH 29.8 pg (25.7-33.7); MCHC 33.6 g/dl (32.0-35.9); MEAN CELL VOLUME 88.8 fl (80-96); MEAN PLT VOLUME 7.6 fl (7.5-11.1); PLATELET COUNT 289 10^3/uL (134-434); RBC 3.81 M/mm3 (4.00-5.60); RDW 15.8 % (11.9-15.9); WHITE BLOOD COUNT 3.9 K/mm3 (4.0-10.0)
[2021-07-08] MEDS ORDERED: CISPLATIN IV ONE (10:30)
[2021-07-08] MEDS ORDERED: SODIUM CHLORIDE IV ONE (10:30)
[2021-07-08] MEDS ORDERED: KCL 10 MEQ IVPB 10 MEQ/100 ML INFUS.BAG IVPB ONE (11:30)
[2021-07-08] MEDS ORDERED: MAGNESIUM 1GM/D5W - 1 GM/100 ML IVPB IVPB ONE (11:30)
[2021-07-08 13:58] LABS: ALBUMIN 3.2 g/dl (3.4-5.0); BILIRUBIN,TOTAL 0.3 mg/dL (0.2-1); CALCIUM 8.7 mg/dL (8.5-10.1); CREATININE 0.7 mg/dL (0.55-1.3); TOT PROT 6.4 g/dl (6.4-8.2)
[2021-07-08] MEDS ORDERED: PORTA CATH FLUSH 10 ML IVPUSH ONE (16:52)
[2021-07-09 07:57] VITALS: BP 153/76; PULSE 88; TEMP 98.7
[2021-07-09] MEDS ORDERED: PORTA CATH FLUSH 10 ML IVPUSH ONE (07:57)
== END 2021-07-08 16:54 | disposition home or self-care (01) ==
LOC: JONCCHEMO 08:37
PROVIDERS: ATTEND Internal Medicine Hematology & Oncology
DX: Z51.11 Encounter for antineoplastic chemotherapy (principal); C09.9 Malignant neoplasm of tonsil, unspecified
CPT/HCPCS: 36415; 80053; 85025; 96361; 96366; 96367; 96375; 96413; J1453; J2469

== ENCOUNTER 2021-07-10 06:52 | Day surgery (SDC) | payer OTHER ==
[2021-07-10] MEDS ORDERED: SODIUM CHLORIDE 500 ML IV ONE (09:00)
[2021-07-10 09:32] VITALS: TEMP 98.2
[2021-07-10 10:38] LABS: ALBUMIN 3.2 g/dl (3.4-5.0); BLOOD UREA NITROGEN 17.1 mg/dL (7-18); MAGNESIUM 1.9 mg/dL (1.8-2.4)
[2021-07-10 10:41] LABS: CREATININE 1.1 mg/dL (0.55-1.3)
[2021-07-10 10:43] LABS: BILIRUBIN,TOTAL 0.5 mg/dL (0.2-1); TOT PROT 6.4 g/dl (6.4-8.2)
[2021-07-10] MEDS ORDERED: MAGNESIUM SULF 50% (8.12 MEQ/2 ML-1 GM VIAL) IVPB ONE (11:03)
[2021-07-10 14:36] VITALS: BP 128/55; PULSE 78
== END 2021-07-10 15:43 | disposition home or self-care (01) ==
LOC: JONCNONCHE 06:52
PROVIDERS: ATTEND Internal Medicine Hematology & Oncology
PROC: 3E043GC Introduction of Other Therapeutic Substance into Central Vein, Percutaneous Approach (ICD-10-PCS; principal; 2021-07-10)
PROC: 3E043GC Introduction of Other Therapeutic Substance into Central Vein, Percutaneous Approach (ICD-10-PCS; 2021-07-10)
DX: C09.9 Malignant neoplasm of tonsil, unspecified (principal); Z76.89 Persons encountering health services in other specified circumstances
CPT/HCPCS: 36415; 80053; 83735; 96361; 96365

== ENCOUNTER 2021-09-30 18:15 | Emergency (ER) | payer OTHER ==
[2021-09-30 18:28] VITALS: BP 137/76; PULSE 81; TEMP 98.7; BMI 27.0
[2021-09-30] MEDS ORDERED: ACETAMINOPHEN 500 MG TABLET (FP) PO ONE (20:00)
[2021-09-30] MEDS ORDERED: ACETAMINOPHEN 500 MG TABLET (FP) ONE (20:01)
== END 2021-09-30 20:45 | disposition home or self-care (01) ==
LOC: JERFT 18:15 → JER 18:15 → JERFT 20:45
DX: S49.92XA Unspecified injury of left shoulder and upper arm, initial encounter (principal); W01.0XXA Fall on same level from slipping, tripping and stumbling without subsequent striking against object, initial encounter
CPT/HCPCS: 73030-TC-LT-FY; 99283-25

== ENCOUNTER 2021-10-09 04:37 | Emergency (ER) | payer OTHER ==
[2021-10-09 04:58] VITALS: BP 128/69; PULSE 78; TEMP 98.3; BMI 24.9
== END 2021-10-09 05:40 | disposition home or self-care (01) ==
LOC: JER 04:37
DX: S90.416A Abrasion, unspecified lesser toe(s), initial encounter (principal); W22.09XA Striking against other stationary object, initial encounter
CPT/HCPCS: 99281-25

== ENCOUNTER → 2021-12-10 | Day surgery (SDC) | payer OTHER ==
[2021-12-10 09:51] LABS: BASO % 0.8 % (0-2.0); EOS % 5.3 % (0-4.5); HEMATOCRIT 39.8 % (35.4-49); HEMOGLOBIN 13.3 GM/dL (11.7-16.9); LYMPH % 18.3 % (8-40); MCH 30.2 pg (25.7-33.7); MCHC 33.4 g/dl (32.0-35.9); MEAN CELL VOLUME 90.6 fl (80-96); MEAN PLT VOLUME 7.2 fl (7.5-11.1); MONO % 18.6 % (3.8-10.2); PLATELET COUNT 153 10^3/uL (134-434); RBC 4.39 M/mm3 (4.00-5.60); RDW 14.9 % (11.9-15.9); WHITE BLOOD COUNT 2.1 K/mm3 (4.0-10.0)
[2021-12-10 10:07] LABS: INR 1.13 (0.83-1.09)
== END | disposition home or self-care (01) ==
LOC: JRADIR 08:53
PROVIDERS: ATTEND Internal Medicine Hematology & Oncology
PROC: 0JPT0WZ Removal of Totally Implantable Vascular Access Device from Trunk Subcutaneous Tissue and Fascia, Open Approach (ICD-10-PCS; principal; 2021-12-10)
DX: Z45.2 Encounter for adjustment and management of vascular access device (principal)
CPT/HCPCS: 36415; 36590; 77001-TC-FY; 85025; 85610

== ENCOUNTER 2022-02-01 00:51 | Emergency (ER) | payer OTHER ==
[2022-02-01 01:05] VITALS: BP 114/72; PULSE 96; RESP 18; TEMP 98.1; BMI 25.0
[2022-02-01] MEDS ORDERED: LACTATED RINGERS SOLUTION 1000 ML INFUS.BAG IV ONE (01:42)
[2022-02-01 02:40] LABS: BASO % 0.2 % (0-2.0); EOS % 1.7 % (0-4.5); HEMATOCRIT 45.4 % (35.4-49); HEMOGLOBIN 15.3 GM/dL (11.7-16.9); LYMPH % 10.4 % (8-40); MCH 30.9 pg (25.7-33.7); MCHC 33.6 g/dl (32.0-35.9); MEAN CELL VOLUME 91.8 fl (80-96); MEAN PLT VOLUME 6.8 fl (7.5-11.1); MONO % 12.8 % (3.8-10.2); NEUT % 74.9 % (42.8-82.8); PLATELET COUNT 206 10^3/uL (134-434); RBC 4.94 M/mm3 (4.00-5.60); RDW 13.7 % (11.9-15.9); WHITE BLOOD COUNT 3.2 K/mm3 (4.0-10.0)
[2022-02-01 03:09] LABS: CALCIUM 9.7 mg/dL (8.5-10.1)
[2022-02-01 03:13] LABS: CREATININE 1.2 mg/dL (0.55-1.3)
[2022-02-01 03:15] LABS: BILIRUBIN,TOTAL 0.8 mg/dL (0.2-1); TOT PROT 7.7 g/dl (6.4-8.2)
[2022-02-01] MEDS ORDERED: MAG HYDROX/AL HYDROX/SIMETH 30 ML UNIT-DOSE CUP PO ONE (03:20)
[2022-02-01] MEDS ORDERED: ONDANSETRON 4 MG/2 ML VIAL IVPUSH ONE (03:20)
[2022-02-01] MEDS ORDERED: FAMOTIDINE 20 MG/50 ML IVPB 20 MG/50 ML MG IVPB ONE ×2 (03:20→03:40)
[2022-02-01 03:21] LABS: BLOOD UREA NITROGEN 19.9 mg/dL (7-18)
[2022-02-01] MEDS ORDERED: MAG HYDROX/AL HYDROX/SIMETH 30 ML UNIT-DOSE CUP ONE (03:40)
[2022-02-01] MEDS ORDERED: ONDANSETRON 4 MG/2 ML VIAL ONE (03:40)
== END 2022-02-01 04:49 | disposition home or self-care (01) ==
LOC: JER 00:51
PROC: 3E033NZ Introduction of Analgesics, Hypnotics, Sedatives into Peripheral Vein, Percutaneous Approach (ICD-10-PCS; principal; 2022-02-01)
PROC: 3E033GC Introduction of Other Therapeutic Substance into Peripheral Vein, Percutaneous Approach (ICD-10-PCS; 2022-02-01)
DX: R19.7 Diarrhea, unspecified (principal)
CPT/HCPCS: 36415; 80053; 83735; 85025; 99284-25

== ENCOUNTER 2022-06-04 11:20 | Emergency (ER) | payer OTHER ==
[2022-06-04 11:29] VITALS: BP 145/73; PULSE 96; RESP 20; TEMP 98.4; BMI 25.0
== END 2022-06-04 14:25 | disposition home or self-care (01) ==
LOC: JERFT 11:20
DX: M79.89 Other specified soft tissue disorders (principal)
CPT/HCPCS: 73590-TC-RT-FY; 99283-25